=== PATIENT | female | born 1945 | race Caucasian/White ===

== ENCOUNTER → 2020-08-05 | Outpatient (CLI) | payer MEDICARE, OTHER ==
[~2020-08-05] MED LIST: LEVAQUIN750 MG PO; VENTOLIN HFA 66.7 GM INH
== END ==
LOC: RAD 11:35
DX: M54.6 Pain in thoracic spine (principal); M54.2 Cervicalgia; M51.34 Other intervertebral disc degeneration, thoracic region; M50.30 Other cervical disc degeneration, unspecified cervical region
CPT/HCPCS: 72040; 72072

== ENCOUNTER → 2020-08-12 | Outpatient (CLI) | payer MEDICARE, OTHER | LOC: KOH-I 14:03 | DX: E04.9 Nontoxic goiter, unspecified (principal); E04.1 Nontoxic single thyroid nodule | CPT/HCPCS: 76536 ==

== ENCOUNTER → 2020-10-17 | Outpatient (CLI) | payer MEDICARE, OTHER ==
[2020-10-17 15:41] LABS: BUN/CREATININE RATIO 18 (0-10)
== END ==
LOC: LAB 11:31
PROVIDERS: Specialist
DX: E78.2 Mixed hyperlipidemia (principal)
CPT/HCPCS: 36415; 80053; 80061

== ENCOUNTER → 2020-11-12 | Outpatient (CLI) | payer MEDICARE, OTHER ==
[2020-11-12 13:46] LABS: BUN/CREATININE RATIO 17 (0-10)
== END ==
LOC: LAB 11:41
PROVIDERS: Internal Medicine
DX: R93.89 Abnormal findings on diagnostic imaging of other specified body structures (principal)
CPT/HCPCS: 36415; 80069; 83970